=== PATIENT | female | born 1930 | race Caucasian/White ===

== ENCOUNTER 2020-07-13 09:48 | Observation (INO) ==
[2020-07-13] MEDS ORDERED: NALOXONE HCL 0.4 MG/ML VIAL IV ONE (10:07)
--- NOTE | 2020-07-13 10:20 | Emergency Department Note ---
Altered Mental Status HPI General Chief Complaint: Altered Mental Status Stated Complaint: altered loc Time Seen by Provider: 07/13/20 09:57 Source: EMS, RN notes reviewed, old records reviewed and other Mode of arrival: EMS Limitations: altered mental status History of Present Illness HPI Narrative: Narrative: 89-year-old female last seen normal at 0 915. Is in a assisted living center called the front window cashier and stated that she thought someone was in her room and was trying to kill her. EMS arrival found the patient to be confused with decreased responsiveness. Patient is able to normally ambulate with assistance and is alert and oriented x3 with normal conversation. Upon arrival the patient is somnolent with decreased responsiveness. She will answer questions with a nod of her head or single word and localizes to painful stimuli with all 4 extremities. She is giving no additional information. MD complaint: altered mental status, confusion, decreased responsiveness and weakness Onset (ago): hour(s) (1) Time: 09:15 Timing confirmed by: caregiver Severity: moderate Context: change in medication Related Data Home Medications Medication Instructions Recorded Confirmed cholecalciferol (vitamin D3) 25 1,000 unit PO QDAY 02/09/15 07/13/20 mcg (1,000 unit) capsule ascorbic acid (vitamin C) 500 mg 500 mg PO QDAY 04/25/17 07/13/20 tablet aspirin 81 mg tablet,delayed 81 mg PO QDAY 06/02/20 07/13/20 release Previous Rx's Medication Instructions Recorded melatonin 5 mg capsule 5 mg PO QHS #30 cap 06/01/20 meclizine 12.5 mg PO TID PRN #30 tab 06/04/20 furosemide 20 mg tablet 20 mg PO QAM #30 tab 06/15/20 metoprolol succinate 50 mg 75 mg PO BID #180 tab 06/15/20 tablet,extended release 24 hr ondansetron HCl 4 mg tablet 4 mg PO Q8H PRN #30 tab 06/15/20 polyethylene glycol 3350 17 17 g PO QDAY #119 g 06/15/20 gram/dose oral powder potassium chloride 10 mEq 10 meq PO QDAY #30 tab 06/15/20 tablet,extended release nitrofurantoin 100 mg PO BID 5 Days #10 cap 07/01/20 monohydrate/macrocrystals 100 mg capsule tramadol 50 mg tablet 50 mg PO BID PRN #60 tab 07/12/20 valacyclovir 1 gram tablet 2,000 mg PO BID PRN #8 tab 07/12/20 Allergies Allergy/AdvReac Type Severity Reaction Status Date / Time latex Allergy Unknown Rash Verified 06/01/20 13:52 mirtazapine AdvReac Unknown Hallucinati Verified 06/01/20 13:54 ng codeine sulfate AdvReac Intermediate Nausea Uncoded 06/01/20 13:52 Review of Systems ROS ROS Narrative: Narrative: Limitations: ROS unobtainable due to patients medical condition [facility] Narrative Patient History Narrative: Narrative: Medical/Surgical/Family History All Active Problems (Updated 07/13/20 @ 13:27 by Ryan Calloway MD) Altered mental status (Acute) Delirium due to general medical condition (Acute) Congestive heart failure (CHF) (Acute) Benign paroxysmal positional vertigo (Acute) History of hip surgery (Chronic) Extensive facial fractures (Acute) Medicare annual wellness visit, initial (Acute) Nausea & vomiting (Acute) Atrial fibrillation with RVR (Acute) Hypokalemia (Acute) Hypomagnesemia (Acute) Fracture of humerus, right, closed (Acute) Dizziness (Acute) History of tubal ligation (Chronic) Hx of tonsillectomy (Chronic) Joint pain (Chronic) Hypertension, essential (Chronic) Pure hypercholesterolemia (Chronic) 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) Gastroesophageal reflux (Chronic) Back pain (Chronic) Medical History (Updated 07/13/20 @ 13:27 by Ryan Calloway MD) Back pain Gastroesophageal reflux Herpes simplex (10/12/11) History of cardiac arrhythmia Paroxysmal atrial fibrillation Hypertension, essential Joint pain right hip Pure hypercholesterolemia Right humeral fracture Surgical History History of hip surgery Right hip fracture, February 2020 History of tubal ligation Hx of tonsillectomy Family History mother Cardiac disease, Onset Age: 75 father , 82 Essential hypertension sister Infectious disease Social History Smoking Status: Former smoker Alcohol Intake Frequency: a few times a week Substance Use: does not use Exam Narrative Narrative: Narrative: General Limitations: altered mental status General appearance: Present in no apparent distress, lethargic and obtunded Head Head: Present atraumatic and normocephalic Eye Eye: Present normal appearance, PERRL and EOMI ENT ENT: Present normal exam and mucous membranes dry Neck Neck: Present normal inspection Chest Chest: Present normal inspection; Absent tenderness Respiratory Respiratory: Present normal lung sounds bilaterally; Absent respiratory distress Cardiovascular Cardiovascular: Present tachycardia, irregular rhythm and systolic murmur Adbominal Abdominal: Present soft; Absent distention, tenderness, guarding and rebound Extremities Extremities: Present normal inspection, full ROM, pedal edema and pretibial edema Back Back: Present normal inspection; Absent CVA tenderness (R) and CVA tenderness (L) Neurological Neurological: Present reflexes normal (Normal Babinski) and other (Patient is somnolent but responds to painful stimuli with purposeful movement of all 4 extremities can follow simple commands will open up her mouth and open up her eyes when asked. She has positive gag reflex) Skin Skin: Present warm (WNL); Absent rash Course Vital Signs Vital signs: Vital Signs Temperature 97.9 F 07/13/20 09:50 Pulse Rate 117 H 07/13/20 09:50 Respiratory Rate 16 07/13/20 09:50 Blood Pressure 139/107 07/13/20 09:50 Pulse Oximetry (%) 98 07/13/20 09:50 Temperature 97.9 F 07/13/20 09:50 Pulse Rate 97 H 07/13/20 13:17 Respiratory Rate 16 07/13/20 13:17 Blood Pressure 124/83 07/13/20 10:16 Pulse Oximetry (%) 96 07/13/20 13:17 MDM MDM Narrative Medical decision making narrative: Narrative: 89-year-old female with altered mental status. Last seen normal at 915 called front window cashier complaining of being confused and that somebody was in the room t rying to hurt her. Patient was altered upon arrival and initially only painful stimuli with purposeful movement. Head CT is without acute changes CBC is within normal limits electrolytes are within normal limits chest x-ray shows congestive heart failure as is an elevated BNP ammonia is normal troponin is normal diagnosis 1 is altered mental status diagnosis to his congestive heart failure request admission from hospitalist. Medical Records Medical records reviewed: Yes I reviewed the patient's medical records. Lab Data Lab results reviewed: Yes I reviewed the patient's lab results. Result diagrams: 07/13/20 10:07 07/13/20 10:07 Labs: Lab Results 07/13/20 07/13/20 07/13/20 Range/Units 10:07 10:07 10:07 WBC 8.0 (4.5-11.0) K/mcL RBC 4.70 (4.00-5.20) M/mcL Hgb 12.9 (12.0-15.0) g/dL Hct 41.2 (36.0-48.0) % MCV 87.7 (80.0-100.0) fL MCH 27.4 (26.0-34.0) pg MCHC 31.3 (31.0-36.0) g/dL RDW 16.9 H (11.5-14.5) % Plt Count 295 (140-440) K/mcL MPV 12.3 H (7.4-10.4) fL Neut % (Auto) 66.1 (38.0-78.0) % Lymph % (Auto) 19.2 (15.0-49.0) % Knott % (Auto) 10.7 (1.0-12.0) % Eos % (Auto) 2.9 (0.0-7.0) % Baso % (Auto) 1.1 (0.0-2.0) % Lymph # (Auto) 1.53 (1.50-4.80) K/mcL Knott # (Auto) 0.85 (0.10-0.90) K/mcL Eos # (Auto) 0.23 (0.00-0.70) K/mcL Baso # (Auto) 0.09 (0.00-0.20) K/mcL Absolute Neutrophils 5.27 (1.80-8.00) K/mcL POC PT (11.9-14.5) sec POC INR (0.8-1.2) VBG Lactic Acid (0.5-2.0) mmol/L Sodium 133 (133-145) mmol/L Potassium 3.9 (3.3-5.1) mmol/L Chloride 94 L (96-108) mmol/L Carbon Dioxide 27 (22-30) mmol/L Anion Gap 12.0 (8.0-16.0) BUN 13 (8-23) mg/dL Creatinine 0.7 (0.6-1.1) mg/dL GFR Calculation 77 Glucose 93 (70-105) mg/dL Calcium 9.7 (8.6-10.4) mg/dL Total Bilirubin 1.0 (0.1-1.0) mg/dL AST 18 (<32) U/L ALT 14 (<40) U/L Alkaline Phosphatase 127 H (39-117) U/L Ammonia (11-51) umol/L Troponin T < 0.01 (<0.03) ng/mL NT-Pro-B Natriuret Pep (<450.0) pg/mL Total Protein 5.8 L (5.9-8.4) gm/dL Albumin 3.7 (3.2-5.2) gm/dL Globulin 2.1 L (2.2-3.7) gm/dL Albumin/Globulin Ratio 1.8 (1.0-2.3) Acetaminophen ug/mL Ethyl Alcohol (<0.010) gm/dL 07/13/20 07/13/20 07/13/20 Range/Units 10:07 10:07 10:44 WBC (4.5-11.0) K/mcL RBC (4.00-5.20) M/mcL Hgb (12.0-15.0) g/dL Hct (36.0-48.0) % MCV (80.0-100.0) fL MCH (26.0-34.0) pg MCHC (31.0-36.0) g/dL RDW (11.5-14.5) % Plt Count (140-440) K/mcL MPV (7.4-10.4) fL Neut % (Auto) (38.0-78.0) % Lymph % (Auto) (15.0-49.0) % Knott % (Auto) (1.0-12.0) % Eos % (Auto) (0.0-7.0) % Baso % (Auto) (0.0-2.0) % Lymph # (Auto) (1.50-4.80) K/mcL Knott # (Auto) (0.10-0.90) K/mcL Eos # (Auto) (0.00-0.70) K/mcL Baso # (Auto) (0.00-0.20) K/mcL Absolute Neutrophils (1.80-8.00) K/mcL POC PT (11.9-14.5) sec POC INR (0.8-1.2) VBG Lactic Acid 1.6 (0.5-2.0) mmol/L Sodium (133-145) mmol/L Potassium (3.3-5.1) mmol/L Chloride (96-108) mmol/L Carbon Dioxide (22-30) mmol/L Anion Gap (8.0-16.0) BUN (8-23) mg/dL Creatinine (0.6-1.1) mg/dL GFR Calculation Glucose (70-105) mg/dL Calcium (8.6-10.4) mg/dL Total Bilirubin (0.1-1.0) mg/dL AST (<32) U/L ALT (<40) U/L Alkaline Phosphatase (39-117) U/L Ammonia (11-51) umol/L Troponin T (<0.03) ng/mL NT-Pro-B Natriuret Pep (<450.0) pg/mL Total Protein (5.9-8.4) gm/dL Albumin (3.2-5.2) gm/dL Globulin (2.2-3.7) gm/dL Albumin/Globulin Ratio (1.0-2.3) Acetaminophen < 5.0 ug/mL Ethyl Alcohol < 0.010 (<0.010) gm/dL 07/13/20 07/13/20 07/13/20 Range/Units 10:44 10:45 10:49 WBC (4.5-11.0) K/mcL RBC (4.00-5.20) M/mcL Hgb (12.0-15.0) g/dL Hct (36.0-48.0) % MCV (80.0-100.0) fL MCH (26.0-34.0) pg MCHC (31.0-36.0) g/dL RDW (11.5-14.5) % Plt Count (140-440) K/mcL MPV (7.4-10.4) fL Neut % (Auto) (38.0-78.0) % Lymph % (Auto) (15.0-49.0) % Knott % (Auto) (1.0-12.0) % Eos % (Auto) (0.0-7.0) % Baso % (Auto) (0.0-2.0) % Lymph # (Auto) (1.50-4.80) K/mcL Knott # (Auto) (0.10-0.90) K/mcL Eos # (Auto) (0.00-0.70) K/mcL Baso # (Auto) (0.00-0.20) K/mcL Absolute Neutrophils (1.80-8.00) K/mcL POC PT 11.8 L (11.9-14.5) sec POC INR 1.0 (0.8-1.2) VBG Lactic Acid (0.5-2.0) mmol/L Sodium (133-145) mmol/L Potassium (3.3-5.1) mmol/L Chloride (96-108) mmol/L Carbon Dioxide (22-30) mmol/L Anion Gap (8.0-16.0) BUN (8-23) mg/dL Creatinine (0.6-1.1) mg/dL GFR Calculation Glucose (70-105) mg/dL Calcium (8.6-10.4) mg/dL Total Bilirubin (0.1-1.0) mg/dL AST (<32) U/L ALT (<40) U/L Alkaline Phosphatase (39-117) U/L Ammonia 15 (11-51) umol/L Troponin T (<0.03) ng/mL NT-Pro-B Natriuret Pep 7837.0 H (<450.0) pg/mL Total Protein (5.9-8.4) gm/dL Albumin (3.2-5.2) gm/dL Globulin (2.2-3.7) gm/dL Albumin/Globulin Ratio (1.0-2.3) Acetaminophen ug/mL Ethyl Alcohol (<0.010) gm/dL Radiology Data Radiology results reviewed: Yes I reviewed the patient's radiology results. Radiology results narrative: Head CT is without acute changes chest x-ray shows pattern of congestive heart failure. EKG Data EKG #1: EKG attestation: Yes I reviewed and interpreted this EKG. Rate: tachycardia (107) Rhythm: A.Fib T wave inversions noted in: III, aVF, v1, v2, v3, v4 and v5 Interpretation: nonspecific ST-T wave changes Pulse Oximetry Data Pulse Ox %: 98 Interpretation: 98% on room air within normal limits. Discharge Plan Patient/Caregiver Discharge Instructions Pt seen by ENVIRONMENTAL RESEARCH PROJECT MANAGER/PA only: No Clinical Impression: Delirium due to general medical condition Altered mental status Qualifiers: Altered mental status type: delirium Qualified Code(s): R41.0 - Disorientation, unspecified Congestive heart failure (CHF) Qualifiers: Heart failure type: unspecified Heart failure chronicity: unspecified Qualified Code(s): I50.9 - Heart failure, unspecified Patient Disposition: Xfer As Inpt ([facility]) Follow up with: Wilfredo Cohen PA-C [Primary Care Provider] - Prescriptions: No Action nitrofurantoin monohyd/m-cryst [Macrobid] 100 mg capsule 100 mg PO BID 5 Days Qty: 10 RF: 0 valacyclovir 1 gram tablet 2,000 mg PO BID PRN (Reason: outbreak) Qty: 8 RF: 1 tramadol 50 mg tablet 50 mg PO BID PRN (Reason: pain) Qty: 60 RF: 0 cholecalciferol (vitamin D3) 1,000 unit capsule 1,000 unit PO QDAY RF: 0 ascorbic acid (vitamin C) 500 mg tablet 500 mg PO QDAY RF: 0 melatonin 5 mg capsule 5 mg PO QHS Qty: 30 RF: 0 aspirin 81 mg tablet,delayed release (DR/EC) 81 mg PO QDAY RF: 0 metoprolol succinate 50 mg tablet extended release 24 hr 75 mg PO BID Qty: 180 RF: 3 furosemide 20 mg tablet 20 mg PO QAM Qty: 30 RF: 2 potassium chloride 10 mEq tablet extended release 10 meq PO QDAY Qty: 30 RF: 2 ondansetron HCl 4 mg tablet 4 mg PO Q8H PRN (Reason: nausea and vomiting) Qty: 30 RF: 0 polyethylene glycol 3350 [Miralax] 17 gram/dose powder 17 g PO QDAY Qty: 119 RF: 0 meclizine 12.5 mg tablet 12.5 mg PO TID PRN (Reason: dizziness) Qty: 30 RF: 0
[2020-07-13 10:49] LABS: POC Pro Time 11.8 sec (11.9-14.5)
--- NOTE | 2020-07-13 10:52 | Cat Scan Report ---
History: Altered mental status and responds to painful stimuli TECHNIQUE: The brain was imaged without contrast at 2.5 mm intervals. Sagittal and coronal reformats were created. Radiation exposure was limited using dose reduction technology. FINDINGS: There is mild to moderate generalized cerebral atrophy both above and below the tentorium. There is no evidence of hemorrhage, infarct, edema or mass effect. Ventricles are prominent but proportionate to the atrophy. Incidentally noted are cysts in the choroid plexus bilaterally. There is no abnormal extra-axial fluid collection. Bone windows show no skull lesion. There is an air-fluid level in the right side of the sphenoid sinus. On the prior CT done on 12/16/19 there was much worse diffuse sinusitis. IMPRESSION: Age-related degenerative changes with no acute abnormality Mild right sphenoid sinusitis Dr. Calloway was called with the report Interpreted and Authenticated by: Pradeep Graves 07/13/20
--- NOTE | 2020-07-13 10:52 | XRay Report ---
HISTORY: Altered level of consciousness FINDINGS: There are mild generalized hazy infiltrates in both lungs with the greatest consolidation in the basilar segments. Superimposed are small bilateral pleural effusions. The heart is moderately enlarged. Linear scars are seen medially in the right apex. Comparison with the prior exam from 03/08/18 shows the alveolar opacities and pleural effusion are new. The heart has increased in size. There is a small cortical deformity along the medial side of the neck of the right humerus. This may be from an old injury. IMPRESSION: Cardiomegaly with congestive heart failure Interpreted and Authenticated by: Pradeep Graves 07/13/20
[2020-07-13 11:23] LABS: Basophils # (Auto) 0.09 K/mcL (0.00-0.20); Basophils % (Auto) 1.1 % (0.0-2.0); Eosinophils # (Auto) 0.23 K/mcL (0.00-0.70); Eosinophils % (Auto) 2.9 % (0.0-7.0); Hematocrit 41.2 % (36.0-48.0); Hemoglobin 12.9 g/dL (12.0-15.0); Lymphocytes # (Auto) 1.53 K/mcL (1.50-4.80); Lymphocytes % (Auto) 19.2 % (15.0-49.0); Mean Cell Volume 87.7 fL (80.0-100.0); Mean Corpuscular HGB Conc 31.3 g/dL (31.0-36.0); Mean Platelet Volume 12.3 fL (7.4-10.4); Monocytes # (Auto) 0.85 K/mcL (0.10-0.90); Monocytes % (Auto) 10.7 % (1.0-12.0); Neutrophils % (Auto) 66.1 % (38.0-78.0); Platelet Count 295 K/mcL (140-440); Red Cell Distribution Width 16.9 % (11.5-14.5)
[2020-07-13 11:43] LABS: Alcohol, Blood < 10.0 mg/dL; Alcohol,Blood < 0.010 gm/dL (<0.010)
[2020-07-13 11:46] LABS: ALT/SGPT 14 U/L (<40); AST/SGOT 18 U/L (<32); Albumin 3.7 gm/dL (3.2-5.2); Albumin/Globulin Ratio 1.8 (1.0-2.3); Alkaline Phosphatase 127 U/L (39-117); Blood Urea Nitrogen 13 mg/dL (8-23); Calcium 9.7 mg/dL (8.6-10.4); Carbon Dioxide 27 mmol/L (22-30); Chloride 94 mmol/L (96-108); Globulin 2.1 gm/dL (2.2-3.7); Glomerular Filtration Rate 77; Glucose 93 mg/dL (70-105)
[2020-07-13] MEDS ORDERED: FUROSEMIDE 40 MG/4 ML VIAL IV ONE (12:35)
[2020-07-13] MEDS ORDERED: oxyCODONE HCL 5 MG TABLET PO PRN ×2 (14:37→18:27)
[2020-07-13] MEDS ORDERED: IBUPROFEN 600 MG TABLET PO PRN ×2 (14:37→18:27)
[2020-07-13] MEDS ORDERED: ONDANSETRON 4 MG/2 ML VIAL IV PRN ×2 (14:37→18:27)
[2020-07-13] MEDS ORDERED: ACETAMINOPHEN 325 MG TABLET PO PRN ×2 (14:37→18:27)
[2020-07-13 14:42] LABS: Appearance,Urine CLOUDY (Clear); Bacteria,Urine FEW /hpf (0); Bilirubin,Urine Negative (Negative); Calcium Oxalate Crystals,Urine MOD /hpf; Color,Urine YELLOW; Culture Indicated,Urine yes; Glucose,Urine (UA) Negative (Negative); Ketones,Urine Negative (Negative); Leukocyte Esterase,Urine 25 /ug (Negative); Mucus,Urine FEW /hpf; Nitrate,Urine Negative (Negative); Protein,Urine 30 mg/dL (Negative); Specific Gravity,Urine 1.011 (1.000-1.035); Urine Blood Negative (Negative); Urine Hyaline Cast 18 /lph (0-2); Urine RBC 16 /hpf (0-3); Urine Squamous Epithelial Cell 3 /hpf (0-4); Urine Transitional Epi Cells 5 /hpf (0-2); Urine WBC 35 /hpf (0-4); Urobilinogen,Urine Negative
--- NOTE | 2020-07-13 14:51 | Internal Med History&Physical ---
HPI History of Present Illness Patient information: Note initiated : 07/13/20 at 2:42 pm Service Date, if different from initiated Date: [] Patient: Danii Harvey 89 y/o F admitted on for altered loc. Chief Complaint: [altered mental status ] History of present illness: Ms. Harvey is a 89 year old F history of atrial fibrillation's on anticoagulations, CHF, assisted-living home residence, presenting with 1 day history of acute onset altered mental status. There was no prior similar episode. This morning at around 9:30 AM she was found to be having altered mental status with lethargy by assisted living staff. As such, she was sent to our ED for further evaluation and treatment. According to ER physicians, she was initially appeared to be lethargic and confused and can only carry out simple conversations with short answers when she first got to the ED, but subsequently improved and now back to baseline mental status. CT of the head no evidence of acute intracranial pathologies. Labs were also grossly within normal limits except for elevated BNP to 7800. Currently, patient denies any confusions or lethargy. She denies any shortness of breath or any chest pain or any other pain or discomfort. She denies any headaches. She said that she was not confused at the assisted living facility but rather she just had some disagreement and argument with the staff over there. Constitutional Constitutional: Absent chills, excessive sweating, fatigue, fever(s) and weakness EENT Eyes: Absent blurry vision, change in vision, loss of vision and other visual disturbances Ears: Absent decreased hearing and tinnitus Nose, mouth and throat: Absent abnormal hearing, dry mouth, headache(s), nasal congestion and sore throat Cardiovascular Cardiovascular: Absent chest pain, chest pain at rest, edema, irregular heart rhythm and palpatations Respiratory Respiratory: Absent cough, dyspnea and wheezing Gastrointestinal Gastrointestinal: Absent abdominal pain, constipation, diarrhea, nausea and vomiting Musculoskeletal Musculoskeletal: Absent back pain, deformity, limited range of motion, muscle cramps, muscle weakness and numbness Integumentary Integumentary: Absent lesions, rash and wounds Neurological Neurological: Absent focal weakness, headache(s) and numbness Psychiatric Psychiatric: Absent anxiety, depression and hallucinations PFSH PFSH All Active Problems (Updated 07/13/20 @ 13:27 by Ryan Calloway MD) Altered mental status (Acute) Delirium due to general medical condition (Acute) Congestive heart failure (CHF) (Acute) Benign paroxysmal positional vertigo (Acute) History of hip surgery (Chronic) Extensive facial fractures (Acute) Medicare annual wellness visit, initial (Acute) Nausea & vomiting (Acute) Atrial fibrillation with RVR (Acute) Hypokalemia (Acute) Hypomagnesemia (Acute) Fracture of humerus, right, closed (Acute) Dizziness (Acute) History of tubal ligation (Chronic) Hx of tonsillectomy (Chronic) Joint pain (Chronic) Hypertension, essential (Chronic) Pure hypercholesterolemia (Chronic) 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) Gastroesophageal reflux (Chronic) Back pain (Chronic) Medical History (Updated 07/13/20 @ 13:27 by Ryan Calloway MD) Back pain Gastroesophageal reflux Herpes simplex (10/12/11) History of cardiac arrhythmia Paroxysmal atrial fibrillation Hypertension, essential Joint pain right hip Pure hypercholesterolemia Right humeral fracture Surgical History History of hip surgery Right hip fracture, February 2020 History of tubal ligation Hx of tonsillectomy Family History mother Cardiac disease, Onset Age: 75 father , 82 Essential hypertension sister Infectious disease Social History housing: assisted living facility marital status: education level: high school occupational status: retired occupation: Clerical leisure activities: other other: 4 bio children, 2 step-kids eating out: 1-3 times/week physical activity: none alcohol intake frequency: a few times a week substance use type: does not use miguel angel/adventism: Druze seatbelt use: always MEDS/ALLERGIES Home Medications and Allergies Home Medications Medication Instructions Recorded Confirmed Type cholecalciferol (vitamin D3) 25 1,000 unit PO QDAY 02/09/15 07/13/20 History mcg (1,000 unit) capsule ascorbic acid (vitamin C) 500 mg 500 mg PO QDAY 04/25/17 07/13/20 History tablet melatonin 5 mg capsule 5 mg PO QHS #30 cap 06/01/20 07/13/20 Rx aspirin 81 mg tablet,delayed 81 mg PO QDAY 06/02/20 07/13/20 History release meclizine 12.5 mg PO TID PRN #30 tab 06/04/20 07/13/20 Rx furosemide 20 mg tablet 20 mg PO QAM #30 tab 06/15/20 07/13/20 Rx metoprolol succinate 50 mg 75 mg PO BID #180 tab 06/15/20 07/13/20 Rx tablet,extended release 24 hr ondansetron HCl 4 mg tablet 4 mg PO Q8H PRN #30 tab 06/15/20 07/13/20 Rx polyethylene glycol 3350 17 17 g PO QDAY #119 g 06/15/20 07/13/20 Rx gram/dose oral powder potassium chloride 10 mEq 10 meq PO QDAY #30 tab 06/15/20 07/13/20 Rx tablet,extended release nitrofurantoin 100 mg PO BID 5 Days #10 cap 07/01/20 07/13/20 Rx monohydrate/macrocrystals 100 mg capsule tramadol 50 mg tablet 50 mg PO BID PRN #60 tab 07/12/20 07/13/20 Rx valacyclovir 1 gram tablet 2,000 mg PO BID PRN #8 tab 07/12/20 07/13/20 Rx Allergies Allergy/AdvReac Type Severity Reaction Status Date / Time latex Allergy Unknown Rash Verified 06/01/20 13:52 mirtazapine AdvReac Unknown Hallucinati Verified 06/01/20 13:54 ng codeine sulfate AdvReac Intermediate Nausea Uncoded 06/01/20 13:52 EXAM Constitutional Vitals: Temp Pulse Resp BP Pulse Ox 36.6 C 78 16 116/90 97 07/13/20 09:50 07/13/20 14:08 07/13/20 14:08 07/13/20 14:08 07/13/20 14:08 General appearance: cooperative and no acute distress Head Head exam: Present atraumatic and normocephalic Eye Eye exam: Present EOMI and PERRL ENT ENT exam: Present mucous membranes moist, normal exam and normal external ear exam Neck Neck exam: Present normal inspection; Absent lymphadenopathy, tenderness and thyromegaly Respiratory Respiratory exam: Absent accessory muscle use, respiratory distress and wheezes Cardiovascular Cardiovascular exam: Present irregular rhythm; Absent JVD GI/Abdominal GI/Abdominal exam: Present normal bowel sounds and soft; Absent organomegaly and tenderness Extremities Exam Extremities exam: Present full ROM, normal capillary refill, normal inspection a nd pedal edema; Absent tenderness Neurological Exam Neurological exam: Present alert, CN II-XII intact and oriented X3; Absent motor sensory deficit Psychiatric Psychiatric exam: Present normal affect and normal mood; Absent anxious and depressed Skin Skin exam: Present dry and intact DATA Data Completed and Pending Labs: Labs from last 24 hours 07/13/20 07/13/20 07/13/20 13:35 10:49 10:45 WBC RBC Hgb Hct MCV MCH MCHC RDW Plt Count MPV Neut % (Auto) Lymph % (Auto) [place] % (Auto) Eos % (Auto) Baso % (Auto) Lymph # (Auto) [place] # (Auto) Eos # (Auto) Baso # (Auto) Absolute Neutrophils POC PT 11.8 L POC INR 1.0 VBG Lactic Acid Sodium Potassium Chloride Carbon Dioxide Anion Gap BUN Creatinine GFR Calculation Glucose Calcium Total Bilirubin AST ALT Alkaline Phosphatase Ammonia Troponin T NT-Pro-B Natriuret Pep 7837.0 H Total Protein Albumin Globulin Albumin/Globulin Ratio Urine Color Pending Urine Appearance Pending Urine pH Pending Ur Specific [place] Pending Urine Protein Pending Urine Glucose (UA) Pending Urine Ketones Pending Urine Occult Blood Pending Urine Nitrate Pending Urine Bilirubin Pending Urine Urobilinogen Pending Ur Leukocyte Esterase Pending Opiates Screen Methadone Propoxyphene & Metabol Methaqualone Acetaminophen Barbiturate Screen Phencyclidine Screen Amphetamines Screen Benzodiazepines Screen Cocaine Screen Marijuana (THC) Screen Drug Screen Specimen Ethyl Alcohol 07/13/20 07/13/20 07/13/20 10:44 10:44 10:07 WBC RBC Hgb Hct MCV MCH MCHC RDW Plt Count MPV Neut % (Auto) Lymph % (Auto) [place] % (Auto) Eos % (Auto) Baso % (Auto) Lymph # (Auto) [place] # (Auto) Eos # (Auto) Baso # (Auto) Absolute Neutrophils POC PT POC INR VBG Lactic Acid 1.6 Sodium Potassium Chloride Carbon Dioxide Anion Gap BUN Creatinine GFR Calculation Glucose Calcium Total Bilirubin AST ALT Alkaline Phosphatase Ammonia 15 Troponin T NT-Pro-B Natriuret Pep Total Protein Albumin Globulin Albumin/Globulin Ratio Urine Color Urine Appearance Urine pH Ur Specific [place] Urine Protein Urine Glucose (UA) Urine Ketones Urine Occult Blood Urine Nitrate Urine Bilirubin Urine Urobilinogen Ur Leukocyte Esterase Opiates Screen Methadone Propoxyphene & Metabol Methaqualone Acetaminophen Barbiturate Screen Phencyclidine Screen Amphetamines Screen Benzodiazepines Screen Cocaine Screen Marijuana (THC) Screen Drug Screen Specimen Ethyl Alcohol < 0.010 07/13/20 07/13/20 07/13/20 10:07 10:07 10:07 WBC RBC Hgb Hct MCV MCH MCHC RDW Plt Count MPV Neut % (Auto) Lymph % (Auto) [place] % (Auto) Eos % (Auto) Baso % (Auto) Lymph # (Auto) [place] # (Auto) Eos # (Auto) Baso # (Auto) Absolute Neutrophils POC PT POC INR VBG Lactic Acid Sodium 133 Potassium 3.9 Chloride 94 L Carbon Dioxide 27 Anion Gap 12.0 BUN 13 Creatinine 0.7 GFR Calculation 77 Glucose 93 Calcium 9.7 Total Bilirubin 1.0 AST 18 ALT 14 Alkaline Phosphatase 127 H Ammonia Troponin T < 0.01 NT-Pro-B Natriuret Pep Total Protein 5.8 L Albumin 3.7 Globulin 2.1 L Albumin/Globulin Ratio 1.8 Urine Color Urine Appearance Urine pH Ur Specific [place] Urine Protein Urine Glucose (UA) Urine Ketones Urine Occult Blood Urine Nitrate Urine Bilirubin Urine Urobilinogen Ur Leukocyte Esterase Opiates Screen Pending Methadone Pending Propoxyphene & Metabol Pending Methaqualone Pending Acetaminophen < 5.0 Barbiturate Screen Pending Phencyclidine Screen Pending Amphetamines Screen Pending Benzodiazepines Screen Pending Cocaine Screen Pending Marijuana (THC) Screen Pending Drug Screen Specimen Pending Ethyl Alcohol 07/13/20 10:07 WBC 8.0 RBC 4.70 Hgb 12.9 Hct 41.2 MCV 87.7 MCH 27.4 MCHC 31.3 RDW 16.9 H Plt Count 295 MPV 12.3 H Neut % (Auto) 66.1 Lymph % (Auto) 19.2 [place] % (Auto) 10.7 Eos % (Auto) 2.9 Baso % (Auto) 1.1 Lymph # (Auto) 1.53 [place] # (Auto) 0.85 Eos # (Auto) 0.23 Baso # (Auto) 0.09 Absolute Neutrophils 5.27 POC PT POC INR VBG Lactic Acid Sodium Potassium Chloride Carbon Dioxide Anion Gap BUN Creatinine GFR Calculation Glucose Calcium Total Bilirubin AST ALT Alkaline Phosphatase Ammonia Troponin T NT-Pro-B Natriuret Pep Total Protein Albumin Globulin Albumin/Globulin Ratio Urine Color Urine Appearance Urine pH Ur Specific [place] Urine Protein Urine Glucose (UA) Urine Ketones Urine Occult Blood Urine Nitrate Urine Bilirubin Urine Urobilinogen Ur Leukocyte Esterase Opiates Screen Methadone Propoxyphene & Metabol Methaqualone Acetaminophen Barbiturate Screen Phencyclidine Screen Amphetamines Screen Benzodiazepines Screen Cocaine Screen Marijuana (THC) Screen Drug Screen Specimen Ethyl Alcohol A/P Assessment and plan (1) Altered mental status: Status: Acute Qualifiers: Altered mental status type: delirium Qualified Code(s): R41.0 - Disorientation, unspecified (2) Delirium due to general medical condition: Status: Acute (3) Congestive heart failure (CHF): Status: Acute Qualifiers: Heart failure chronicity: unspecified Heart failure type: unspecified Qualified Code(s): I50.9 - Heart failure, unspecified (4) Atrial fibrillation with RVR: Status: Acute (5) Hypertension, essential: Status: Chronic Narrative A/P Narrative: 1. Altered mental status: DDx: TIA vs silent seziure vs metabolic encephalopathy vs progression of u ndiagnosed dementia Observation med surg Urine analysis Repeat cbc w/ auto diff and CMP in the morning Neuro status check q4hr 2. CHF, stable: Supplemental oxygen as needed to achieve spo2 >=92%, currently tolerating room air Lasix PO Metoprolol ER 3. Atrial fibrillation: Metoprolol ER for rate control Not on anticoagulation therapy, likely owning to increased risk of fall. Defer the decision to start anticoagulant therapy to PCP SCDs for now 4. Essential HTN: Currently normotensive Lasix PO Metoprolol ER Time Spent With Patient Time: Total time spent is greater than 50% in coordination of care (as documented) at patient's floor/unit and/or counseling patient: Total time spent with greater than 50% in coordination of care (as documented) at patient's floor/unit and/or counseling patient:: 15 - 24 minutes QUALITY Stroke Symptom Onset Unknown: No
[2020-07-13] MEDS ORDERED: MECLIZINE 25 MG TABLET PO PRN (19:42)
[2020-07-13] MEDS ORDERED: DOCUSATE SODIUM 100 MG CAPSULE PO SCH (21:00)
[2020-07-13] MEDS ORDERED: SENNOSIDES 1 TABLET PO SCH (21:00)
[2020-07-13] MEDS: METOPROLOL SUCCINATE 50 MG TAB.XL.24H PO SCH (21:22)
[2020-07-13] MEDS: SENNOSIDES 1 TABLET PO SCH (21:23)
[2020-07-13] MEDS: DOCUSATE SODIUM 100 MG CAPSULE PO SCH (21:23)
[2020-07-13] MEDS: NITROFURANTOIN SR 100 MG CAPSULE PO SCH (21:23)
[2020-07-13] MEDS: MELATONIN 3 MG TABLET PO SCH ×2 (21:23→21:27)
[2020-07-13] MEDS: 0.9 % SODIUM CHLORIDE 10 ML SYRINGE IV SCH (21:24)
[2020-07-13] MEDS ORDERED: 0.9 % SODIUM CHLORIDE 10 ML SYRINGE IV SCH (22:00)
[2020-07-14] MEDS: 0.9 % SODIUM CHLORIDE 10 ML SYRINGE IV SCH ×3 (05:39→20:27)
[2020-07-14 07:48] LABS: Basophils # (Auto) 0.07 K/mcL (0.00-0.20); Basophils % (Auto) 0.8 % (0.0-2.0); Eosinophils # (Auto) 0.19 K/mcL (0.00-0.70); Eosinophils % (Auto) 2.2 % (0.0-7.0); Hematocrit 41.1 % (36.0-48.0); Hemoglobin 13.2 g/dL (12.0-15.0); Lymphocytes # (Auto) 1.42 K/mcL (1.50-4.80); Lymphocytes % (Auto) 16.6 % (15.0-49.0); Mean Cell Volume 85.6 fL (80.0-100.0); Mean Corpuscular HGB Conc 32.1 g/dL (31.0-36.0); Mean Platelet Volume 12.4 fL (7.4-10.4); Monocytes # (Auto) 0.94 K/mcL (0.10-0.90); Neutrophils % (Auto) 69.4 % (38.0-78.0); Platelet Count 280 K/mcL (140-440); WBC 8.6 K/mcL (4.5-11.0)
[2020-07-14 08:26] LABS: ALT/SGPT 13 U/L (<40); AST/SGOT 17 U/L (<32); Albumin 3.6 gm/dL (3.2-5.2); Alkaline Phosphatase 118 U/L (39-117); Bilirubin,Total 0.9 mg/dL (0.1-1.0); Blood Urea Nitrogen 13 mg/dL (8-23); Calcium 9.3 mg/dL (8.6-10.4); Carbon Dioxide 28 mmol/L (22-30); Chloride 97 mmol/L (96-108); Globulin 1.8 gm/dL (2.2-3.7); Glomerular Filtration Rate 77; Glucose 101 mg/dL (70-105)
[2020-07-14] MEDS: METOPROLOL SUCCINATE 50 MG TAB.XL.24H PO SCH ×2 (09:11→20:27)
[2020-07-14] MEDS: ASCORBIC ACID 500 MG TABLET PO SCH (09:11)
[2020-07-14] MEDS: VITAMIN D3 1,000 UNIT TABLET PO SCH (09:11)
[2020-07-14] MEDS: FUROSEMIDE 20 MG TABLET PO SCH (09:11)
[2020-07-14] MEDS: POTASSIUM CHLORIDE 10 MEQ TABLET PO SCH (09:12)
[2020-07-14] MEDS: ASPIRIN 81 MG TAB.CHEW PO SCH (09:12)
[2020-07-14] MEDS: DOCUSATE SODIUM 100 MG CAPSULE PO SCH ×2 (09:12→20:27)
[2020-07-14] MEDS: NITROFURANTOIN SR 100 MG CAPSULE PO SCH ×2 (09:13→20:26)
[2020-07-14] MEDS: POLYETHYLENE GLYCOL 3350 17 GM PACKET PO SCH (09:15)
--- NOTE | 2020-07-14 14:12 | Discharge Summary ---
Discharge Provider Provider Patient information: Note initiated : 07/14/20 at 2:08 pm Service Date, if different from initiated Date: [] Patient: Danii Harvey 89 y/o F admitted on 07/13/20 for altered loc. Chief Complaint: [Altered mental status ] Date of admission: 07/13/20 16:57 Discharge date: 07/14/20 Primary care physician: Wilfredo Cohen PA-C Consults: 07/13/20 Consult to Physician [CONS] Stat Comment: Consulting Provider: Jesus Craig Reason For Exam: Physician to Consult Discharge Meds Discharge Medications Home Medications cholecalciferol (vitamin D3) 25 mcg (1,000 unit) capsule 1,000 unit PO QDAY 02/09/15 [History Confirmed 07/13/20 Last Taken Unknown] ascorbic acid (vitamin C) 500 mg tablet 500 mg PO QDAY 04/25/17 [History Confirmed 07/13/20 Last Taken Unknown] aspirin 81 mg tablet,delayed release 81 mg PO QDAY 06/02/20 [History Confirmed 07/13/20 Last Taken Unknown] meclizine 12.5 mg PO TID PRN #30 tab 06/04/20 [Rx Confirmed 07/13/20 Last Taken Unknown] furosemide 20 mg tablet 20 mg PO QAM #30 tab 06/15/20 [Rx Confirmed 07/13/20 Last Taken 07/13/20 09:00] metoprolol succinate 50 mg tablet,extended release 24 hr 75 mg PO BID #180 tab 06/15/20 [Rx Confirmed 07/13/20 Last Taken 07/13/20 09:00] ondansetron HCl 4 mg tablet 4 mg PO Q8H PRN #30 tab 06/15/20 [Rx Confirmed 07/13/20 Last Taken Unknown] polyethylene glycol 3350 17 gram/dose oral powder 17 g PO QDAY #119 g 06/15/20 [ Rx Confirmed 07/13/20 Last Taken Unknown] potassium chloride 10 mEq tablet,extended release 10 meq PO QDAY #30 tab 06/15/20 [Rx Confirmed 07/14/20 Last Taken 07/13/20 09:00] nitrofurantoin monohydrate/macrocrystals 100 mg capsule 100 mg PO BID 5 Days #10 cap 07/01/20 [Rx Confirmed 07/13/20 Last Taken Unknown] tramadol 50 mg tablet 50 mg PO BID PRN #60 tab 07/12/20 [Rx Confirmed 07/13/20 Last Taken Unknown] valacyclovir 1 gram tablet 2,000 mg PO BID PRN #8 tab 07/12/20 [Rx Confirmed 07/14/20 Last Taken Unknown] hydrochlorothiazide 12.5 mg PO DAILY 07/14/20 [History Confirmed 07/14/20 Last Taken 07/13/20 09:00] mirtazapine 7.5 mg PO HS 07/14/20 [History Confirmed 07/14/20 Last Taken Unknown] COURSE Hospital Course Hospital course: Patient was admitted on 07/13/20 for altered mental status that got resolved during her stay in ER. She was admitted to the floor for observation overnight. Her mental status remained to be at baseline during her hospital stay. She also has a history of CHF, and it remained stable and she was tolerating room air during her hospital stay. The decision was made to discharge her to SNF the next day. 2 week PCP follow up appointment made for her. No new prescription. All questions were answered prior to patient being physically discharged. Discharge diagnosis: Metabolic encephalopathy Reason for admission: Altered mental status Time Spent with Patient Time attestation: Total time spent providing and/or coordinating discharge services: Time spent: Less than 30 minutes EXAM Constitutional Vitals: Temp Pulse Resp BP Pulse Ox 36.3 C 114 H 18 130/90 95 07/14/20 12:00 07/14/20 12:00 07/14/20 12:00 07/14/20 12:00 07/14/20 12:00 Discharge Data Data Completed and Pending Labs on day of discharge: Labs from last 24 hours 07/14/20 07/14/20 07/13/20 06:16 06:16 13:35 WBC 8.6 RBC 4.80 Hgb 13.2 Hct 41.1 MCV 85.6 MCH 27.5 MCHC 32.1 RDW 17.0 H Plt Count 280 MPV 12.4 H Neut % (Auto) 69.4 Lymph % (Auto) 16.6 [place] % (Auto) 11.0 Eos % (Auto) 2.2 Baso % (Auto) 0.8 Lymph # (Auto) 1.42 L [place] # (Auto) 0.94 H Eos # (Auto) 0.19 Baso # (Auto) 0.07 Absolute Neutrophils 5.94 Sodium 136 Potassium 3.5 Chloride 97 Carbon Dioxide 28 Anion Gap 11.0 BUN 13 Creatinine 0.7 GFR Calculation 77 Glucose 101 Calcium 9.3 Total Bilirubin 0.9 AST 17 ALT 13 Alkaline Phosphatase 118 H Total Protein 5.4 L Albumin 3.6 Globulin 1.8 L Albumin/Globulin Ratio 2.0 Urine Color Yellow Urine Appearance Cloudy A Urine pH 6.0 Ur Specific [place] 1.011 Urine Protein 30 A Urine Glucose (UA) Negative Urine Ketones Negative Urine Occult Blood Negative Urine Nitrate Negative Urine Bilirubin Negative Urine Urobilinogen Negative Ur Leukocyte Esterase 25 A Urine RBC 16 H Urine WBC 35 H Ur Squamous Epith Cells 3 Ur Transition Epith Cell 5 H Calcium Oxalate Crystal Mod A Urine Bacteria Few A Hyaline Casts 18 H Urine Mucus Few A Ur Culture Indicated? yes Preliminary micro results at discharge 07/13/20 10:43 Blood Culture - Preliminary Blood 07/13/20 10:43 Blood Culture - Preliminary Blood Discharge Plan Patient/Caregiver Discharge Instructions Activity: as per physical therapy Diet: Regular Diet Instructions: Heart Failure (DC) Activity Restrictions/Additional Instructions: Discharge to SNF 2 week PCP follow up appointment Prescriptions: Continued nitrofurantoin monohyd/m-cryst [Macrobid] 100 mg capsule 100 mg PO BID 5 Days Qty: 10 RF: 0 valacyclovir 1 gram tablet 2,000 mg PO BID PRN (Reason: outbreak) Qty: 8 RF: 1 tramadol 50 mg tablet 50 mg PO BID PRN (Reason: pain) Qty: 60 RF: 0 cholecalciferol (vitamin D3) 1,000 unit capsule 1,000 unit PO QDAY RF: 0 ascorbic acid (vitamin C) 500 mg tablet 500 mg PO QDAY RF: 0 aspirin 81 mg tablet,delayed release (DR/EC) 81 mg PO QDAY RF: 0 metoprolol succinate 50 mg tablet extended release 24 hr 75 mg PO BID Qty: 180 RF: 3 furosemide 20 mg tablet 20 mg PO QAM Qty: 30 RF: 2 potassium chloride 10 mEq tablet extended release 10 meq PO QDAY Qty: 30 RF: 2 ondansetron HCl 4 mg tablet 4 mg PO Q8H PRN (Reason: nausea and vomiting) Qty: 30 RF: 0 polyethylene glycol 3350 [Miralax] 17 gram/dose powder 17 g PO QDAY Qty: 119 RF: 0 meclizine 12.5 mg tablet 12.5 mg PO TID PRN (Reason: dizziness) Qty: 30 RF: 0 mirtazapine 7.5 mg Tablet 7.5 mg PO HS RF: 0 hydrochlorothiazide 12.5 mg Capsule 12.5 mg PO DAILY RF: 0 Follow Up Plan Follow up with: Wilfredo Cohen PA-C [Primary Care Provider] - Patient Disposition: [facility] Potential: Good Overall status at discharge: patient is back to baseline Discharge Orders: Discharge Order (Routine); Ordered 07/14/20 Ordered By: Jesus DEVRIES VTE Deep Vein Thrombosis/Pulmonary Embolism Present on Admission: No
--- NOTE | 2020-07-14 14:36 | Internal Med Progress Note ---
SUBJECTIVE Subjective Patient information: Note initiated : 07/14/20 at 2:34 pm Service Date, if different from initiated Date: [] Patient: Danii Harvey 89 y/o F admitted on 07/13/20 for altered loc. Chief Complaint: [Altered mental status ] Overnight: There was no major overnight events. Subjective: Denies confusion. Denies lethargy. Denies SOB. Denies chest pain. Denies palpitation. Constitutional Vitals: Vital Signs Temp Pulse Resp BP Pulse Ox 36.3 C 114 H 18 130/90 95 07/14/20 12:00 07/14/20 12:00 07/14/20 12:00 07/14/20 12:00 07/14/20 12:00 Period Temp Pulse Resp BP Sys/[place] Pulse Ox Last 24 Hr 35.9 C-36.6 C 38-130 12-20 111-136/64-113 92-96 Intake and Output 07/14/20 07/14/20 07/14/20 05:59 13:59 21:59 Intake Total 200 Output Total 200 Balance 0 Weight 76.249 kg Patient Weight 07/15/20 05:59 Weight 76.249 kg Intake & Output: Intake & Output 07/14/20 07/14/20 07/14/20 05:59 13:59 21:59 Intake Total 200 Output Total 200 Balance 0 Weight 76.249 kg Intake: Oral 200 Output: Void Amount 200 Other: Urine Appearance Clear Urine Color Bright Yellow Urine Odor Normal Stool Size Small Stool Color Brown Stool Consistency Formed Hue # Bowel Movements 1 General appearance: cooperative and no acute distress Head Head exam: Present atraumatic and normocephalic Eye Eye exam: Present EOMI and PERRL ENT ENT exam: Present mucous membranes moist, normal exam and normal external ear exam Neck Neck exam: Present normal inspection; Absent lymphadenopathy, tenderness and thyromegaly Respiratory Respiratory exam: Absent accessory muscle use, respiratory distress and wheezes Cardiovascular Cardiovascular exam: Present normal rate and rhythm; Absent JVD GI/Abdominal GI/Abdominal exam: Present normal bowel sounds and soft; Absent organomegaly and tenderness Extremities Exam Extremities exam: Present full ROM, normal capillary refill, normal inspection and pedal edema; Absent tenderness Neurological Exam Neurological exam: Present alert, CN II-XII intact and oriented X3; Absent motor sensory deficit Psychiatric Psychiatric exam: Present normal affect and normal mood; Absent anxious and depressed Skin Skin exam: Present dry and intact OBJ DATA Labs CBC & Chem 7: 07/14/20 06:16 07/14/20 06:16 Labs: Abnormal Lab Results 07/14/20 07/14/20 07/13/20 06:16 06:16 13:35 RDW 17.0 H MPV 12.4 H Lymph # (Auto) 1.42 L [place] # (Auto) 0.94 H POC PT Chloride Alkaline Phosphatase 118 H NT-Pro-B Natriuret Pep Total Protein 5.4 L Globulin 1.8 L Urine Appearance Cloudy A Urine Protein 30 A Ur Leukocyte Esterase 25 A Urine RBC 16 H Urine WBC 35 H Ur Transition Epith Cell 5 H Calcium Oxalate Crystal Mod A Urine Bacteria Few A Hyaline Casts 18 H Urine Mucus Few A 07/13/20 07/13/20 07/13/20 10:49 10:45 10:07 RDW MPV Lymph # (Auto) [place] # (Auto) POC PT 11.8 L Chloride 94 L Alkaline Phosphatase 127 H NT-Pro-B Natriuret Pep 7837.0 H Total Protein 5.8 L Globulin 2.1 L Urine Appearance Urine Protein Ur Leukocyte Esterase Urine RBC Urine WBC Ur Transition Epith Cell Calcium Oxalate Crystal Urine Bacteria Hyaline Casts Urine Mucus 07/13/20 10:07 RDW 16.9 H MPV 12.3 H Lymph # (Auto) [place] # (Auto) POC PT Chloride Alkaline Phosphatase NT-Pro-B Natriuret Pep Total Protein Globulin Urine Appearance Urine Protein Ur Leukocyte Esterase Urine RBC Urine WBC Ur Transition Epith Cell Calcium Oxalate Crystal Urine Bacteria Hyaline Casts Urine Mucus Meds: Medications Acetaminophen (Acetaminophen 325 Mg Tablet) 650 mg PO Q6HP PRN; Protocol PRN Reason: Per Pain Protocol/Fever > 101 Ascorbic Acid (Ascorbic Acid 500 Mg Tablet) 500 mg PO QDAY [facility] Last Admin: 07/14/20 09:11 Dose: 500 mg Documented by: Aspirin (Aspirin 81 Mg Tab.Chew) 81 mg PO DAILY [facility] Last Admin: 07/14/20 09:12 Dose: 81 mg Documented by: Docusate Sodium (Docusate Sodium 100 Mg Capsule) 100 mg PO BID [facility] Last Admin: 07/14/20 09:12 Dose: 100 mg Documented by: Furosemide (Furosemide 20 Mg Tablet) 20 mg PO QAM [facility] Last Admin: 07/14/20 09:11 Dose: 20 mg Documented by: Ibuprofen (Ibuprofen 600 Mg Tablet) 600 mg PO QIDP PRN; Protocol PRN Reason: Per Pain Protocol/Fever > 101 Meclizine HCl (Meclizine 25 Mg Tablet) 12.5 mg PO TIDP PRN PRN Reason: Vertigo Melatonin (Melatonin 3 Mg Tablet) 3 mg PO QHS [facility] Last Admin: 07/13/20 21:27 Dose: Not Given Documented by: Metoprolol Succinate (Metoprolol Succinate 50 Mg Tab.Xl.24h) 75 mg PO BID [facility] Last Admin: 07/14/20 09:11 Dose: 75 mg Documented by: Nitrofurantoin Macrocrystals (Nitrofurantoin Sr 100 Mg Capsule) 100 mg PO BID [facility] Last Admin: 07/14/20 09:13 Dose: 100 mg Documented by: Ondansetron HCl (Ondansetron 4 Mg/2 Ml Vial) 4 mg IV Q6HP PRN PRN Reason: Nausea And Vomiting Oxycodone HCl (Oxycodone Hcl 5 Mg Tablet) 5 mg PO Q4HP PRN; Protocol PRN Reason: Per Pain Protocol Polyethylene Glycol (Polyethylene Glycol 3350 17 Gm Packet) 17 gm PO QDAY [facility] Last Admin: 07/14/20 09:15 Dose: Not Given Documented by: Potassium Chloride (Potassium Chloride 10 Meq Tablet) 10 meq PO QDAY [facility] Last Admin: 07/14/20 09:12 Dose: 10 meq Documented by: Senna (Sennosides 1 Tablet) 2 tab PO HS [facility] Last Admin: 07/13/20 21:23 Dose: 2 tab Documented by: Sodium Chloride (0.9 % Sodium Chloride 10 Ml Syringe) 10 ml IV Q8 [facility] Last Admin: 07/14/20 05:39 Dose: 10 ml Documented by: Vitamin D (Vitamin D3 1,000 Unit Tablet) 1,000 unit PO DAILY [facility] Last Admin: 07/14/20 09:11 Dose: 1,000 unit Documented by: A/P Assessment and plan (1) Altered mental status: Status: Acute Qualifiers: Altered mental status type: delirium Qualified Code(s): R41.0 - Disorientation, unspecified (2) Delirium due to general medical condition: Status: Acute (3) Congestive heart failure (CHF): Status: Acute Qualifiers: Heart failure chronicity: unspecified Heart failure type: unspecified Qualified Code(s): I50.9 - Heart failure, unspecified (4) Atrial fibrillation with RVR: Status: Acute (5) Hypertension, essential: Status: Chronic Narrative A/P Narrative: 1. Altered mental status: DDx: TIA vs silent seziure vs metabolic encephalopathy vs progression of undiagnosed dementia Observation med surg Urine analysis Repeat cbc w/ auto diff and CMP in the morning Neuro status check q4hr Pending SNF placement 2. CHF, stable: Supplemental oxygen as needed to achieve spo2 >=92%, currently tolerating room air Lasix PO Metoprolol ER 3. Atrial fibrillation: Metoprolol ER for rate control Not on anticoagulation therapy, likely owning to increased risk of fall. Defer the decision to start anticoagulant therapy to PCP SCDs for now 4. Essential HTN: Currently normotensive Lasix PO Metoprolol ER Time Spent With Patient Time: Total time spent is greater than 50% in coordination of care (as documented) at patient's floor/unit and/or counseling patient: Total time spent with greater than 50% in coordination of care (as documented) at patient's floor/unit and/or counseling patient:: less than 15 minutes QUALITY Stroke Symptom Onset Unknown: No VTE Deep Vein Thrombosis/Pulmonary Embolism Present on Admission: No
[2020-07-14] MEDS: MELATONIN 3 MG TABLET PO SCH (20:26)
[2020-07-14] MEDS: SENNOSIDES 1 TABLET PO SCH (20:27)
[2020-07-15] MEDS: 0.9 % SODIUM CHLORIDE 10 ML SYRINGE IV SCH (05:45)
[2020-07-15] MEDS: FUROSEMIDE 20 MG TABLET PO SCH (07:00)
[2020-07-15] MEDS: METOPROLOL SUCCINATE 50 MG TAB.XL.24H PO SCH (07:00)
--- NOTE | 2020-07-15 08:22 | Discharge Summary ---
Discharge Provider Provider Patient information: Note initiated : 07/15/20 at 8:21 am Service Date, if different from initiated Date: [] Patient: Danii Harvey 89 y/o F admitted on 07/13/20 for altered loc. Chief Complaint: [altered mental status] Date of admission: 07/13/20 16:57 Discharge date: 07/15/20 Primary care physician: Wilfredo Cohen PA-C Consults: 07/13/20 Consult to Physician [CONS] Stat Comment: Consulting Provider: Jesus Craig Reason For Exam: Physician to Consult Discharge Meds Discharge Medications Home Medications cholecalciferol (vitamin D3) 25 mcg (1,000 unit) capsule 1,000 unit PO QDAY 02/09/15 [History Confirmed 07/14/20 Last Taken 07/13/20] ascorbic acid (vitamin C) 500 mg tablet 500 mg PO QDAY 04/25/17 [History Confirmed 07/14/20 Last Taken 07/13/20] aspirin 81 mg tablet,delayed release 81 mg PO QDAY 06/02/20 [History Confirmed 07/14/20 Last Taken Unknown] meclizine 12.5 mg PO TID PRN #30 tab 06/04/20 [Rx Confirmed 07/13/20 Last Taken Unknown] furosemide 20 mg tablet 20 mg PO QAM #30 tab 06/15/20 [Rx Confirmed 07/13/20 Last Taken 07/13/20 09:00] metoprolol succinate 50 mg tablet,extended release 24 hr 75 mg PO BID #180 tab 06/15/20 [Rx Confirmed 07/13/20 Last Taken 07/13/20 09:00] ondansetron HCl 4 mg tablet 4 mg PO Q8H PRN #30 tab 06/15/20 [Rx Confirmed 07/13/20 Last Taken Unknown] polyethylene glycol 3350 17 gram/dose oral powder 17 g PO QDAY #119 g 06/15/20 [Rx Confirmed 07/13/20 Last Taken Unknown] potassium chloride 10 mEq tablet,extended release 10 meq PO QDAY #30 tab 06/15/20 [Rx Confirmed 07/14/20 Last Taken 07/13/20 09:00] nitrofurantoin monohydrate/macrocrystals 100 mg capsule 100 mg PO BID 5 Days #10 cap 07/01/20 [Rx Confirmed 07/13/20 Last Taken Unknown] tramadol 50 mg tablet 50 mg PO BID PRN #60 tab 07/12/20 [Rx Confirmed 07/14/20 Last Taken 07/12/20] valacyclovir 1 gram tablet 2,000 mg PO BID PRN #8 tab 07/12/20 [Rx Confirmed 07/14/20 Last Taken Unknown] hydrochlorothiazide 12.5 mg PO DAILY 07/14/20 [History Confirmed 07/14/20 Last Taken 07/13/20 09:00] mirtazapine 7.5 mg PO HS 07/14/20 [History Confirmed 07/14/20 Last Taken Unknown] COURSE Hospital Course Hospital course: Patient was admitted on 07/13/20 for altered mental status that got resolved during her stay in ER. She was admitted to the floor for observation overnight. Her mental status remained to be at baseline during her hospital stay. She also has a history of CHF, and it remained stable and she was tolerating room air during her hospital stay. The decision was made to discharge her to SNF the next day. 2 week PCP follow up appointment made for her. No new prescription. All questions were answered prior to patient being physically discharged. Discharge diagnosis: Metabolic encephalopathy Reason for admission: altered mental status Time Spent with Patient Time attestation: Total time spent providing and/or coordinating discharge services: Time spent: Less than 30 minutes EXAM Constitutional Vitals: Temp Pulse Resp BP Pulse Ox 36.4 C 103 H 14 160/113 95 07/15/20 07:21 07/15/20 07:21 07/15/20 07:21 07/15/20 07:21 07/15/20 07:21 General appearance: cooperative and no acute distress Head Head exam: Present atraumatic and normocephalic Eye Eye exam: Present EOMI and PERRL ENT ENT exam: Present mucous membranes moist, normal exam and normal external ear exam Neck Neck exam: Present normal inspection; Absent lymphadenopathy, tenderness and thyromegaly Respiratory Respiratory exam: Absent accessory muscle use, respiratory distress and wheezes Cardiovascular Cardiovascular exam: Present normal rate and rhythm; Absent JVD GI/Abdominal GI/Abdominal exam: Present normal bowel sounds and soft; Absent organomegaly and tenderness Extremities Exam Extremities exam: Present full ROM, normal capillary refill and normal inspection; Absent tenderness Neurological Exam Neurological exam: Present alert, CN II-XII intact and oriented X3; Absent motor sensory deficit Psychiatric Psychiatric exam: Present normal affect and normal mood; Absent anxious and depressed Skin Skin exam: Present dry and intact Discharge Data Data Completed and Pending Labs on day of discharge: Labs from last 24 hours 07/14/20 06:16 Sodium 136 Potassium 3.5 Chloride 97 Carbon Dioxide 28 Anion Gap 11.0 BUN 13 Creatinine 0.7 GFR Calculation 77 Glucose 101 Calcium 9.3 Total Bilirubin 0.9 AST 17 ALT 13 Alkaline Phosphatase 118 H Total Protein 5.4 L Albumin 3.6 Globulin 1.8 L Albumin/Globulin Ratio 2.0 Preliminary micro results at discharge 07/13/20 10:43 Blood Culture - Preliminary Blood 07/13/20 10:43 Blood Culture - Preliminary Blood Discharge Plan Patient/Caregiver Discharge Instructions Activity: as per physical therapy Diet: Regular Diet Instructions: Heart Failure (DC) Activity Restrictions/Additional Instructions: Discharge to SNF 2 week PCP follow up appointment Prescriptions: Continued nitrofurantoin monohyd/m-cryst [Macrobid] 100 mg capsule 100 mg PO BID 5 Days Qty: 10 RF: 0 valacyclovir 1 gram tablet 2,000 mg PO BID PRN (Reason: outbreak) Qty: 8 RF: 1 tramadol 50 mg tablet 50 mg PO BID PRN (Reason: pain) Qty: 60 RF: 0 cholecalciferol (vitamin D3) 1,000 unit capsule 1,000 unit PO QDAY RF: 0 ascorbic acid (vitamin C) 500 mg tablet 500 mg PO QDAY RF: 0 aspirin 81 mg tablet,delayed release (DR/EC) 81 mg PO QDAY RF: 0 metoprolol succinate 50 mg tablet extended release 24 hr 75 mg PO BID Qty: 180 RF: 3 furosemide 20 mg tablet 20 mg PO QAM Qty: 30 RF: 2 potassium chloride 10 mEq tablet extended release 10 meq PO QDAY Qty: 30 RF: 2 ondansetron HCl 4 mg tablet 4 mg PO Q8H PRN (Reason: nausea and vomiting) Qty: 30 RF: 0 polyethylene glycol 3350 [Miralax] 17 gram/dose powder 17 g PO QDAY Qty: 119 RF: 0 meclizine 12.5 mg tablet 12.5 mg PO TID PRN (Reason: dizziness) Qty: 30 RF: 0 mirtazapine 7.5 mg Tablet 7.5 mg PO HS RF: 0 hydrochlorothiazide 12.5 mg Capsule 12.5 mg PO DAILY RF: 0 Follow Up Plan Follow up with: Wilfredo Cohen PA-C [Primary Care Provider] - Patient Disposition: [facility] Rehab Potential: Good Overall status at discharge: patient is back to baseline Discharge Orders: Discharge Order (Routine); Ordered 07/15/20 Ordered By: Jesus DEVRIES VTE Deep Vein Thrombosis/Pulmonary Embolism Present on Admission: No
[2020-07-15] MEDS: ASCORBIC ACID 500 MG TABLET PO SCH (10:59)
[2020-07-15] MEDS: VITAMIN D3 1,000 UNIT TABLET PO SCH (10:59)
[2020-07-15] MEDS: POTASSIUM CHLORIDE 10 MEQ TABLET PO SCH (10:59)
[2020-07-15] MEDS: ASPIRIN 81 MG TAB.CHEW PO SCH (10:59)
[2020-07-15] MEDS: NITROFURANTOIN SR 100 MG CAPSULE PO SCH (10:59)
[2020-07-15] MEDS: DOCUSATE SODIUM 100 MG CAPSULE PO SCH (11:00)
[2020-07-15] MEDS: POLYETHYLENE GLYCOL 3350 17 GM PACKET PO SCH (11:00)
== END 2020-07-15 12:00 ==
LOC: ED 09:48 → MEDSUR 09:48
PROVIDERS: ADMIT Internal Medicine; ATTEND Internal Medicine